=== PATIENT | male | born 1945 ===

== ENCOUNTER 2020-07-29 10:51 | Inpatient (IN) | payer MEDICARE, OTHER ==
[~2020-07-29] VITALS: Ht 165.1 cm; Wt 88.9 kg
[2020-07-29] MEDS ORDERED: IV NORMAL SALINE 1000 ML BAG IV ONE ×2 (11:15→13:15)
[2020-07-29 12:13] LABS: BASOPHILS # (AUTO) 0.1 K/uL (0.0-8.0); BASOPHILS % (AUTO) 0.3 % (0.0-2.0); HEMATOCRIT 32.9 % (36.7-47.1); HEMOGLOBIN 10.7 g/dL (12.5-16.3); LYMPHOCYTES % (AUTO) 5.1 % (20.5-51.5); MEAN CORPUSCULAR HEMOGLOBIN 26.5 uug (23.8-33.4); MEAN CORPUSCULAR HGB CONC 33 g/dL (32.5-36.3); MEAN CORPUSCULAR VOLUME 81.2 fL (73.0-96.2); MONOCYTES # (AUTO) 0.7 K/uL (2.0-10.0); MONOCYTES % (AUTO) 3.5 % (0.0-11.0); NEUTROPHILS % (AUTO) 91.1 % (38.5-71.5); PLATELET COUNT (AUTO) 390 K/uL (152-348); RED BLOOD CELL COUNT(AUTO) 4.05 MIL/uL (4.06-5.63); WHITE BLOOD COUNT (AUTO) 19.8 K/uL (3.6-10.2)
[2020-07-29] MEDS ORDERED: METOCLOPRAMIDE HCL 10 MG/2 ML VIAL IV ONE (12:15)
[2020-07-29] MEDS ORDERED: diphenhydrAMINE 50 MG/1 ML VIAL IV ONE (12:15)
[2020-07-29] MEDS ORDERED: LINA5TAB PO (12:18)
[2020-07-29] MEDS ORDERED: DORZ10DR11 EACHEYE (12:18)
[2020-07-29] MEDS ORDERED: BRIM5DRO3 EACHEYE (12:18)
[2020-07-29] MEDS ORDERED: AMLO5TAB4 PO (12:18)
[2020-07-29] MEDS ORDERED: LATA2.5D15 EACHEYE (12:18)
[2020-07-29] MEDS ORDERED: METO50TA16 PO (12:18)
[2020-07-29] MEDS ORDERED: MULT-594 PO (12:18)
[2020-07-29] MEDS ORDERED: LOPE-195 PO (12:18)
[2020-07-29] MEDS ORDERED: INSU100V39 SQ (12:18)
[2020-07-29] MEDS ORDERED: ACID1TAB4 PO (12:18)
[2020-07-29] MEDS ORDERED: ATROPINE SULFATE 1% EACHEYE (12:18)
[2020-07-29] MEDS ORDERED: DEXA4TAB PO (12:18)
[2020-07-29] MEDS ORDERED: AZIT1PAC IV (12:18)
[2020-07-29] MEDS ORDERED: PANT40TA2 PO (12:18)
[2020-07-29] MEDS ORDERED: ATOR40TA PO (12:18)
[2020-07-29] MEDS ORDERED: CEFT1FRO2 IV (12:18)
[2020-07-29] MEDS ORDERED: LACT1CAP69 PO (12:18)
[2020-07-29] MEDS ORDERED: ACET250T9 PO (12:18)
[2020-07-29] MEDS ORDERED: ASCO500C18 PO (12:18)
[2020-07-29] MEDS ORDERED: ACET-2154 PO (12:18)
[2020-07-29] MEDS ORDERED: PIPERACILLIN SODIUM/TAZOBACTAM 3.375 G in IV DEXTROSE 5% 50 ML IV ONE (13:00)
[2020-07-29 13:05] LABS: CREATINE KINASE, TOTAL 126 U/L (39-308)
[2020-07-29] MEDS ORDERED: PIPERACILLIN/TAZOBACTAM/D5W 50 ML IV ONE (13:07)
[2020-07-29 13:08] LABS: ALANINE AMINOTRANSFERASE 32 U/L (16-63); ALKALINE PHOSPHATASE 100 U/L (50-136); ASPARTATE AMINOTRANSFERASE 25 U/L (15-37); BILIRUBIN,TOTAL 0.3 mg/dL (0.2-1.0); CARBON DIOXIDE 14 mmol/L (21-32); CHLORIDE 111 mmol/L (98-107); CREATININE 5.5 mg/dL (0.6-1.3); FERRITIN 1297 ng/mL (26-388); GLUCOSE 281 mg/dL (74-106); LACTATE DEHYDROGENASE 365 U/L (85-227); TOTAL PROTEIN, SERUM 6.1 g/dL (6.4-8.2); UREA NITROGEN, BLOOD 71 mg/dL (7-18)
[2020-07-29 13:17] LABS: ABG HCO3 9.4 mmol/L; ABG PH 7.249 (7.350-7.450); ABG PO2 189.2 mmHg (75.0-100.0); ABG SITE LEFT RADIAL; ABG TOTAL HEMOGLOBIN 11.3 G/dL (13.5-18.0); COHb 0.5 % (0.5-1.5); MetHb 0.1 % (0.0-1.5); O2Hb 98.6 % (94.0-97.0)
[2020-07-29 13:29] LABS: POTASSIUM 2.3 mmol/L (3.5-5.1)
[2020-07-29] MEDS ORDERED: VANCOMYCIN IV 1,000 MG in IV DEXTROSE 5% 250 ML IV ONE (13:45)
[2020-07-29] MEDS ORDERED: POTASSIUM CHLORIDE 100 ML ONE (13:50)
[2020-07-29] MEDS: POTASSIUM CHLORIDE 50 ML IV SCH ×2 (13:56→14:44)
[2020-07-29] MEDS ORDERED: ATROPINE SULFATE 1 MG/10 ML DISP.SYRIN ONE (13:59)
[2020-07-29] MEDS ORDERED: ATROPINE SULFATE 1 MG/10 ML DISP.SYRIN IV ONE (14:00)
--- NOTE | 2020-07-29 14:04 | NUR ---
LEFT SECOND MESSAGE FOR BRITTANI OLIVAS COVERING FOR BRUNA
[2020-07-29] MEDS: NOREPINEPHRINE BITARTRATE 8 MG in IV NORMAL SALINE 242 ML IV PRN (14:14)
--- NOTE | 2020-07-29 14:14 | NUR ---
Levophed increased to 1 mcg/kg/min per Dr Rowe order.
--- NOTE | 2020-07-29 14:24 | NUR ---
levophed decreased to 0.3 mcg/kg/min per Dr Rowe order.
[2020-07-29] MEDS ORDERED: VANCOMYCIN IV 200 ML ONE (14:31)
--- NOTE | 2020-07-29 14:45 | NUR ---
DR Rowe made aware of Levophed decrease.
--- NOTE | 2020-07-29 14:45 | NUR ---
Levophed Decreased to 0.1 mcg/kg/min.
[2020-07-29] MEDS ORDERED: POTASSIUM CHLORIDE 50 ML IV SCH (17:15)
[2020-07-29] MEDS ORDERED: POTASSIUM CHLORIDE 50 ML ONE (17:20)
--- NOTE | 2020-07-29 18:38 | NUR ---
Pt remaines on Levophed 0.1 mcg/kg/min and blood pressure maintained so far.
--- NOTE | 2020-07-29 19:00 | NUR ---
RECEIVED REPORT FROM TREE KNOX LVN, PT POSITIONED FOR COMFORT. LEVOPHED DRIP INFUSING AT 0.1MCG/KG/MIN, VSS, PT ALSO ON 4 L OS VIA NASAL CANNULA.
--- NOTE | 2020-07-29 20:00 | NUR ---
PT RESTING, MONITOR SHOWS NSR, PO2 ON 6 L VIA NASAL CANULA AT 95%, LEVOPHED DRIP AT 0.01 MCG/KG/MIN.
--- NOTE | 2020-07-29 22:00 | NUR ---
PT SLEEPING EYES CLOSED, PO2 ON 6L O2=93%, VSS, LEVOPHED DRIP INFUSING, MONITOR SHOWS NSR.
--- NOTE | 2020-07-29 23:59 | NUR ---
PT RESING, LEVOPHED INFUSING, PO2=95% ON 6L O2 VIS NASAL CANNULA. PT AWAITING FOR CCU BED.
--- NOTE | 2020-07-30 02:00 | NUR ---
PT REPOSITIONED FOR COMFORT, GIVEN WATER PO, MONITOR SHOWS NSR,VSS, LEVOPHED DRIP INFUSING, PO2 ON 6L O2 VIA NASAL CANNULA=93%
--- NOTE | 2020-07-30 05:22 | NUR ---
pt repositioned for comfort, pt resting, no distress noted, levophed drip infusing, po2 on 6l o2 vis nasal cannula =95%.
--- NOTE | 2020-07-30 06:54 | NUR ---
PT RESTING LEVOPHED DRIP INFUSING, PT POSAITIONED FOR COMFORT, SBAR REPORT TO AM SHIFT.
--- NOTE | 2020-07-30 07:00 | NUR ---
RECIEVED PT IN BED, ON MONITOR, A-FIB, 95-104 RATE, 95% WITH NC 4 LITRE.
[2020-07-30 07:52] LABS: BASOPHILS # (AUTO) 0.1 K/uL (0.0-8.0); BASOPHILS % (AUTO) 0.2 % (0.0-2.0); HEMATOCRIT 34.5 % (36.7-47.1); HEMOGLOBIN 11.1 g/dL (12.5-16.3); LYMPHOCYTES # (AUTO) 0.6 K/uL (20.0-40.0); LYMPHOCYTES % (AUTO) 2.6 % (20.5-51.5); MEAN CORPUSCULAR HEMOGLOBIN 27.6 uug (23.8-33.4); MEAN CORPUSCULAR HGB CONC 32 g/dL (32.5-36.3); MEAN CORPUSCULAR VOLUME 86.2 fL (73.0-96.2); MONOCYTES # (AUTO) 0.7 K/uL (2.0-10.0); MONOCYTES % (AUTO) 3.2 % (0.0-11.0); NEUTROPHILS # (AUTO) 21.1 K/uL (1.8-8.9); PLATELET COUNT (AUTO) 450 K/uL (152-348); RED BLOOD CELL COUNT(AUTO) 4.01 MIL/uL (4.06-5.63); WHITE BLOOD COUNT (AUTO) 22.4 K/uL (3.6-10.2)
--- NOTE | 2020-07-30 08:21 | NUR ---
DORIS PLACED MIDLINE, SINGLE LUMEN ON THE ISA.
[2020-07-30 08:23] LABS: MAGNESIUM 2.2 mg/dL (1.8-2.4)
--- NOTE | 2020-07-30 09:00 | NUR ---
LANA CHAKRABORTY, PT SISTER CALLED AND GOT THE UPDATE ON THE PT. Addendum: 07/30/20 at 0906 by LAKSHMI LANA SAID THAT THE PT IS FULL CODE AT THIS POINT.
--- NOTE | 2020-07-30 09:10 | NUR ---
DR. FERREIRA IN ED TO visit the pt.
[2020-07-30] MEDS ORDERED: ACETAMINOPHEN 325 MG TABLET PO PRN (09:15)
--- NOTE | 2020-07-30 09:15 | NUR ---
PERINEAL CARE/HYGIENE PROVIDED.
[2020-07-30] MEDS: HEPARIN SODIUM,PORCINE 5,000 UNITS/ML VIAL SQ SCH ×2 (09:30→21:29)
[2020-07-30] MEDS ORDERED: ONDANSETRON 4 MG/2 ML VIAL IV STA (09:57)
[2020-07-30] MEDS ORDERED: MORPHINE SULFATE 2 MG/1 ML DISP.SYRIN IV ONE (10:00)
[2020-07-30] MEDS ORDERED: ONDANSETRON 4 MG/2 ML VIAL ONE (10:06)
[2020-07-30] MEDS ORDERED: MORPHINE SULFATE 2 MG/1 ML DISP.SYRIN ONE (10:06)
--- NOTE | 2020-07-30 10:30 | NUR ---
Spoke with pt's sister Shea Turner ([phone]) and updated her on pt's condition.
[2020-07-30] MEDS: MEROPENEM 500 MG in IV NORMAL SALINE 50 ML IV SCH (10:33)
[2020-07-30] MEDS ORDERED: HEPARIN SODIUM,PORCINE 5,000 UNITS/ML VIAL ONE ×2 (10:35→21:32)
--- NOTE | 2020-07-30 11:18 | NUR ---
BP 78/46, INCREASED THE LEVOPHED DRIP FROM 0.1MCG TO 0.2 MCG/KG/MIN.
[2020-07-30] MEDS ORDERED: EPINEPHRINE 1:10,000 1 MG/10 ML DISP.SYRIN IV ONE (16:28)
[2020-07-30] MEDS ORDERED: CALCIUM CHLORIDE 1 GM/10 ML DISP.SYRIN IV ONE (16:28)
[2020-07-30] MEDS ORDERED: SODIUM BICARBONATE 8.4% 50 MEQ/50 ML DISP.SYRIN IV ONE ×3 (16:28→23:50)
[2020-07-30] MEDS ORDERED: BRIMONIDINE-P 0.1% OPHTH DROP 5 ML DROPS EACHEYE SCH (17:00)
[2020-07-30] MEDS: ACETAzolamide 250 MG TABLET PO SCH (17:00)
[2020-07-30] MEDS: DORZOLAMIDE/TIMOLOL OPHT DROP 10 ML BOTTLE EACHEYE SCH (20:25)
[2020-07-30] MEDS: BRIMONIDINE 0.2% OPHT DROP 10 ML BOTTLE EACHEYE SCH (20:27)
[2020-07-30] MEDS: LATANOPROST OPHT DROP 2.5 ML BOTTLE EACHEYE SCH (20:28)
[2020-07-30] MEDS ORDERED: ATORVASTATIN 40 MG TABLET PO SCH (21:00)
[2020-07-30] MEDS: PANTOPRAZOLE SODIUM 40 MG TABLET.DR PO SCH (21:00)
[2020-07-30 22:56] LABS: ALANINE AMINOTRANSFERASE 32 U/L (16-63); ALKALINE PHOSPHATASE 110 U/L (50-136); ASPARTATE AMINOTRANSFERASE 41 U/L (15-37); BILIRUBIN,TOTAL 0.5 mg/dL (0.2-1.0); CHLORIDE 110 mmol/L (98-107); CREATININE 6.6 mg/dL (0.6-1.3); MAGNESIUM 2.3 mg/dL (1.8-2.4); POTASSIUM 2.9 mmol/L (3.5-5.1); TOTAL PROTEIN, SERUM 6.4 g/dL (6.4-8.2)
[2020-07-30 22:59] LABS: CARBON DIOXIDE 9 mmol/L (21-32); GLUCOSE 533 mg/dL (74-106); PHOSPHOROUS 9.7 mg/dL (2.5-4.9); UREA NITROGEN, BLOOD 84 mg/dL (7-18)
--- NOTE | 2020-07-30 23:08 | NUR ---
Called [facility] to informed them of critical lab values. Waiting for Dr Moreno to call back.
--- NOTE | 2020-07-30 23:20 | NUR ---
SPOKE TO JONATHAN TELLEZ ENVIRONMENTAL SOLUTIONS ENGINEER FOR [facility] [employer] AND INFORMED HIM OF CRITICAL LABS ( CARBON DIOXIDE 9, BUN 84, CREATINE 6.6, GLUCOSE 533, AND PHOSPHORUS 9.7) ORDERS RECIEVED AND CARRIED OUT.
[2020-07-30] MEDS ORDERED: POTASSIUM CHLORIDE 200 ML ONE (23:51)
[2020-07-30] MEDS: POTASSIUM CHLORIDE 50 ML IV SCH (23:56)
[2020-07-31] VITALS (32 sets, daily range): BP systolic 81–159; BP diastolic 41–78
[2020-07-31] MEDS ORDERED: POTASSIUM CHLORIDE 50 ML IV SCH ×3 (00:15→02:15)
[2020-07-31] MEDS: POTASSIUM CHLORIDE 50 ML IV SCH ×3 (00:30→02:30)
--- NOTE | 2020-07-31 03:06 | NUR ---
Unable to get BP and pulse ox reading. No palpable pulses present. Patient SB on the monitor with HR in the 40's and 50's. Code juanjo called.
[2020-07-31] MEDS ORDERED: PROPOFOL 100 ML ONE (03:25)
[2020-07-31] MEDS ORDERED: NOREPINEPHRINE BITARTRATE 4 MG/4 ML VIAL IV ONE (03:26)
--- NOTE | 2020-07-31 03:48 | NUR ---
Paged Dr Moreno to inform him of patient condition.
--- NOTE | 2020-07-31 03:55 | NUR ---
DR Shin speaking with Dr Moreno.
[2020-07-31] MEDS: PROPOFOL 100 ML IV PRN ×2 (04:00→17:37)
--- NOTE | 2020-07-31 04:03 | NUR ---
Nadira boland in [facility] - 07/31/20 at [id number] Moreno to informed him of patient condition.
[2020-07-31 04:25] LABS: ABG BASE EXCESS -29.2 mmol/L; ABG PCO2 34.8 mmHg (35.0-45.0); ABG PH 6.771 (7.350-7.450); ABG SITE LEFT RADIAL; ABG TOTAL HEMOGLOBIN 10.9 G/dL (13.5-18.0); COHb 0.7 % (0.5-1.5); MetHb 0.2 % (0.0-1.5); O2Hb 98.8 % (94.0-97.0); VENT MODE VENT - A/C; VT, ABG 550 mL
[2020-07-31] MEDS ORDERED: SODIUM BICARBONATE 8.4% 50 MEQ/50 ML DISP.SYRIN IV ONE ×5 (04:52→16:33)
--- NOTE | 2020-07-31 05:00 | NUR ---
Informed Davy Saez client service and consulting manager for [facility] about ABG PH 6.771 and rest of ABG. Recieved orders and carried out.
--- NOTE | 2020-07-31 05:30 | NUR ---
Gave 3amp of Sodium Bicarbonate 8.4% IVP as Dr Moreno ordered.
[2020-07-31 05:36] LABS: BASOPHILS # (AUTO) 0.2 K/uL (0.0-8.0); BASOPHILS % (AUTO) 1.2 % (0.0-2.0); EOSINOPHILS # (AUTO) 0.4 K/uL (0.0-0.7); EOSINOPHILS % (AUTO) 2.1 % (0.0-7.0); HEMATOCRIT 31.1 % (36.7-47.1); HEMOGLOBIN 9.6 g/dL (12.5-16.3); LYMPHOCYTES # (AUTO) 0.4 K/uL (20.0-40.0); LYMPHOCYTES % (AUTO) 2.2 % (20.5-51.5); MEAN CORPUSCULAR HEMOGLOBIN 27.3 uug (23.8-33.4); MEAN CORPUSCULAR HGB CONC 31 g/dL (32.5-36.3); MEAN CORPUSCULAR VOLUME 88.1 fL (73.0-96.2); MONOCYTES # (AUTO) 0.7 K/uL (2.0-10.0); MONOCYTES % (AUTO) 4.1 % (0.0-11.0); NEUTROPHILS # (AUTO) 15.9 K/uL (1.8-8.9); NEUTROPHILS % (AUTO) 90.4 % (38.5-71.5); PLATELET COUNT (AUTO) 414 K/uL (152-348); RED BLOOD CELL COUNT(AUTO) 3.54 MIL/uL (4.06-5.63); WHITE BLOOD COUNT (AUTO) 17.6 K/uL (3.6-10.2)
--- NOTE | 2020-07-31 05:40 | NUR ---
DR Shin spoke with Dr Callejas as pulmonary consult.
[2020-07-31 05:45] LABS: CARBON DIOXIDE 11 mmol/L (21-32); CHLORIDE 112 mmol/L (98-107); CREATININE 6.7 mg/dL (0.6-1.3); POTASSIUM 3.1 mmol/L (3.5-5.1); VANCOMYCIN,RANDOM 4.6 ug/mL (18.0-26.0)
[2020-07-31 05:50] LABS: GLUCOSE 544 mg/dL (74-106); UREA NITROGEN, BLOOD 80 mg/dL (7-18)
--- NOTE | 2020-07-31 06:14 | NUR ---
Started Sodium Bicarbonate drip ( Placed 3 amp of Sodium Bicarbonate in D5W 1liter at 150ml/hr.)
--- NOTE | 2020-07-31 06:38 | NUR ---
Informed DR Moreno that blood glucose is 544. Order to placed patient on insulin drip.
[2020-07-31 06:44] LABS: ABG BASE EXCESS -22.5 mmol/L; ABG HCO3 8.6 mmol/L; ABG PCO2 39.8 mmHg (35.0-45.0); ABG PH 6.951 (7.350-7.450); ABG PO2 582.7 mmHg (75.0-100.0); ABG SITE LEFT RADIAL; ABG TOTAL HEMOGLOBIN 10.5 G/dL (13.5-18.0); COHb 0.4 % (0.5-1.5); MetHb 0.4 % (0.0-1.5); O2Hb 99.1 % (94.0-97.0); VENT MODE VENT - A/C; VT, ABG 550 mL
[2020-07-31] MEDS ORDERED: INSULIN REGULAR, HUMAN 100 UNIT in IV NORMAL SALINE 99 ML IV PRN ×2 (07:15)
[2020-07-31] MEDS ORDERED: SODIUM BICARBONATE 8.4% 150 MEQ in IV D5W 1000ML 1,000 ML IV PRN (08:00)
[2020-07-31] MEDS: BLOOD SUGAR DIAGNOSTIC 1 EACH STRIP VI SCH ×16 (08:00→23:40)
--- NOTE | 2020-07-31 08:00 | NUR ---
Levophed drip increased to 0.5 mcg/kg/min.
--- NOTE | 2020-07-31 08:40 | NUR ---
Pt became pulseless, code juanjo called, cpr started. Please see code blue sheet.
--- NOTE | 2020-07-31 08:45 | NUR ---
Increased Levophed drip to max dose of 1mcg/kg/min, pharmacy aware.
--- NOTE | 2020-07-31 08:45 | NUR ---
Pt had ROSC. Code blue team at bedside, including . BP 48/25, HR 36, RR 20, O2 98 ON ETT.
--- NOTE | 2020-07-31 08:46 | NUR ---
Per hold insulin drip due to low K= (3.1), will page for further orders.
[2020-07-31] MEDS: ACETAzolamide 250 MG TABLET PO SCH (08:58)
[2020-07-31] MEDS: PANTOPRAZOLE SODIUM 40 MG TABLET.DR PO SCH (08:58)
[2020-07-31] MEDS: BRIMONIDINE 0.2% OPHT DROP 10 ML BOTTLE EACHEYE SCH ×2 (08:58→17:00)
[2020-07-31] MEDS: DORZOLAMIDE/TIMOLOL OPHT DROP 10 ML BOTTLE EACHEYE SCH ×2 (08:58→17:00)
[2020-07-31] MEDS ORDERED: LINAGLIPTIN 5 MG TABLET PO SCH (09:00)
[2020-07-31] MEDS ORDERED: VANCOMYCIN IV 1,000 MG in IV DEXTROSE 5% 250 ML IV ONE (09:00)
[2020-07-31] MEDS ORDERED: DEXAMETHASONE 4 MG TABLET PO SCH (09:00)
--- NOTE | 2020-07-31 09:00 | NUR ---
Called ([phone]), office staff stated to call back.
[2020-07-31] MEDS: NOREPINEPHRINE BITARTRATE 8 MG in IV NORMAL SALINE 242 ML IV PRN ×2 (09:07→09:24)
[2020-07-31] MEDS ORDERED: HEPARIN SODIUM,PORCINE 5,000 UNITS/ML VIAL ONE (09:44)
[2020-07-31] MEDS ORDERED: VANCOMYCIN IV 200 ML ONE (09:44)
[2020-07-31] MEDS: HEPARIN SODIUM,PORCINE 5,000 UNITS/ML VIAL SQ SCH ×2 (09:53→20:55)
--- NOTE | 2020-07-31 10:00 | NUR ---
Attempted to call office [phone], no answer, msg stated the line is in use at this time. Will try again later.
[2020-07-31] MEDS: MEROPENEM 500 MG in IV NORMAL SALINE 50 ML IV SCH (10:11)
--- NOTE | 2020-07-31 13:00 | NUR ---
Telephone consent for short-term dialysis catheter received from sister Latisha Cardoso via telephone. Witnessed by ARY Darby.
--- NOTE | 2020-07-31 13:10 | NUR ---
in to see pt.
--- NOTE | 2020-07-31 13:30 | NUR ---
Dialysis catheter placed to rt femoral by .
[2020-07-31 13:41] LABS: A/G RATIO 0.7 (0.7-1.7); ALBUMIN 2.3 g/dL (2.9-4.4); ALPHA-1-GLOBULIN 0.4 g/dL (0.0-0.4); ALPHA-2-GLOBULIN 0.9 g/dL (0.4-1.0); BETA GLOBULIN 0.7 g/dL (0.7-1.3); GAMMA GLOBULIN 1.1 g/dL (0.4-1.8); GLOBULIN, TOTAL 3.2 g/dL (2.2-3.9); M-SPIKE Not Observed g/dL (Not Observed)
--- NOTE | 2020-07-31 14:30 | NUR ---
Levophed drip decreased to 2mcg/kg/min, per pharmacy the new bag is quadruple strength.
[2020-07-31] MEDS ORDERED: VANCOMYCIN IV 750 MG in IV DEXTROSE 5% 250 ML IV SCH (15:00)
--- NOTE | 2020-07-31 15:10 | NUR ---
SBAR report given to ARY Haynes on CCU floor.
--- NOTE | 2020-07-31 15:35 | NUR ---
Pt trans to CCU with ACLS guidelines in place with RT.
--- NOTE | 2020-07-31 15:45 | NUR ---
Patient in from ER. via gurney transfer by Kaelyn and RT. On ventilator with setting A/C 18,100% FIO2, 550 tv, Peep +5. ML to FRANCA infusing with levophed running at 2mcg.kg.min. propofol at 5mcg/kg/min. bicarb drip running at 100cc/hr Insulin drip at 6units/hr Blood sugar check at this time 418 reading obtained adjusted PP. Patient opening eyes and attempting purposeful movement at this time will sedate accordingly. Sacral area with dti and skin tear noted, pictures taken. 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 Attending in the unit while report received. Addendum: 07/31/20 at 1811 by GUS TOBIAS RN Vent setting of A/C 20, VT 550, Peep +5, and FIO2 50%. THE above vent setting were received from telephone report. correct setting are amended.
[2020-07-31] MEDS ORDERED: ATROPINE SULFATE 1 MG/10 ML DISP.SYRIN IV ONE (16:33)
[2020-07-31] MEDS ORDERED: EPINEPHRINE 1:10,000 1 MG/10 ML DISP.SYRIN IV ONE (16:33)
[2020-07-31] MEDS: NOREPINEPHRINE BITARTRATE 32 MG in IV NORMAL SALINE 218 ML IV PRN ×2 (17:35→22:38)
[2020-07-31] MEDS: LATANOPROST OPHT DROP 2.5 ML BOTTLE EACHEYE SCH (17:38)
--- NOTE | 2020-07-31 19:00 | NUR ---
received patient on vent settings of ac 20 tv 550 p5 fio2 of 50 % , arousable to deep pain with temp of 95 . 8 with no spontaneous eye opening , . on bear hugger sset at 38. c , levophed at 0.14 mcg , propofol at 10 mcg , iv at 150 with na bicarb , insulin drip at 6 unit , ekg done , , harish cath intact on femoral
[2020-07-31] MEDS ORDERED: ACETAMINOPHEN 650 MG SUPP.RECT RC PRN (20:00)
[2020-07-31] MEDS ORDERED: MORPHINE SULFATE 2 MG/1 ML DISP.SYRIN IV PRN (20:00)
[2020-07-31] MEDS: POTASSIUM CHLORIDE 20 MEQ in IV 1/2NS 1000 ML 1,000 ML IV PRN (20:45)
[2020-07-31] MEDS: AZITHROMYCIN IV 500 MG in IV DEXTROSE 5% 250 ML IV SCH (20:45)
[2020-07-31] MEDS ORDERED: FAMOTIDINE. 20 MG/2 ML VIAL IV SCH (21:00)
[2020-07-31] MEDS: INSULIN GLARGINE,HUM 300 UNITS/3 ML CARTRIDGE SQ SCH (21:01)
[2020-08-01] VITALS (90 sets, daily range): BP systolic 64–215; BP diastolic 23–144
[2020-08-01] MEDS ORDERED: Z GUARD REMEDY PASTE 57 GM TUBE TOP PRN (00:15)
[2020-08-01] MEDS: BLOOD SUGAR DIAGNOSTIC 1 EACH STRIP VI SCH ×23 (00:37→22:00)
[2020-08-01] MEDS: PROPOFOL 100 ML IV PRN ×2 (00:58→12:16)
[2020-08-01 05:23] LABS: BASOPHILS % (AUTO) 0.3 % (0.0-2.0); HEMATOCRIT 29.5 % (36.7-47.1); HEMOGLOBIN 10.1 g/dL (12.5-16.3); LYMPHOCYTES # (AUTO) 0.2 K/uL (20.0-40.0); LYMPHOCYTES % (AUTO) 1.4 % (20.5-51.5); MEAN CORPUSCULAR HEMOGLOBIN 27.2 uug (23.8-33.4); MEAN CORPUSCULAR HGB CONC 34 g/dL (32.5-36.3); MEAN CORPUSCULAR VOLUME 79.6 fL (73.0-96.2); MONOCYTES # (AUTO) 0.2 K/uL (2.0-10.0); MONOCYTES % (AUTO) 1.7 % (0.0-11.0); NEUTROPHILS # (AUTO) 10.9 K/uL (1.8-8.9); NEUTROPHILS % (AUTO) 96.6 % (38.5-71.5); PLATELET COUNT (AUTO) 312 K/uL (152-348); RED BLOOD CELL COUNT(AUTO) 3.71 MIL/uL (4.06-5.63); WHITE BLOOD COUNT (AUTO) 11.3 K/uL (3.6-10.2)
[2020-08-01 05:49] LABS: THYROID STIMULATING HORMONE 0.998 mIU/mL (0.358-3.740)
--- NOTE | 2020-08-01 05:58 | NUR ---
lactic acid reported to md , waiting for call back
[2020-08-01 05:59] LABS: IRON, SERUM 11 ug/dL (50-175)
[2020-08-01 06:26] LABS: ALANINE AMINOTRANSFERASE 35 U/L (16-63); ALKALINE PHOSPHATASE 121 U/L (50-136); ASPARTATE AMINOTRANSFERASE 61 U/L (15-37); BILIRUBIN,TOTAL 0.4 mg/dL (0.2-1.0); CARBON DIOXIDE 22 mmol/L (21-32); CHLORIDE 112 mmol/L (98-107); CHOLESTEROL 96 mg/dL (<200); CREATININE 5.9 mg/dL (0.6-1.3); FERRITIN 3045 ng/mL (26-388); HDL CHOLESTEROL 45 mg/dL (40-60); MAGNESIUM 1.7 mg/dL (1.8-2.4); PHOSPHOROUS 4.9 mg/dL (2.5-4.9); TOTAL PROTEIN, SERUM 5.8 g/dL (6.4-8.2); TRIGLYCERIDES 98 MG/DL (30-150); UREA NITROGEN, BLOOD 68 mg/dL (7-18)
--- NOTE | 2020-08-01 06:30 | NUR ---
ngt inserted , cxr done to verify placement current saturation 100 % , rr 27 bp 130/ 69 hr 110 , temp of 100 ,2 axillary , post ngt insertion
[2020-08-01 06:31] LABS: GLUCOSE 334 mg/dL (74-106); POTASSIUM 2.6 mmol/L (3.5-5.1)
--- NOTE | 2020-08-01 06:46 | NUR ---
wilman , called back , notified of all critical lab values this morning , diagnosis and history of the patient given and current medications receiiving , received orders of kcl iv
[2020-08-01] MEDS: POTASSIUM CHLORIDE 50 ML IV SCH ×2 (07:42→08:30)
[2020-08-01] MEDS ORDERED: POTASSIUM CHLORIDE 20 MEQ POWDER PACKET NG ONE (07:45)
[2020-08-01 08:11] LABS: ABG BASE EXCESS -7.6 mmol/L; ABG PCO2 36.7 mmHg (35.0-45.0); ABG PH 7.308 (7.350-7.450); ABG PO2 67.2 mmHg (75.0-100.0); ABG SITE RIGHT RADIAL; ABG TOTAL HEMOGLOBIN 10.2 G/dL (13.5-18.0); COHb 0.9 % (0.5-1.5); MetHb 0.5 % (0.0-1.5); VT, ABG 550 mL
[2020-08-01] MEDS: NOREPINEPHRINE BITARTRATE 32 MG in IV NORMAL SALINE 218 ML IV PRN ×3 (08:41→20:00)
[2020-08-01] MEDS: HEPARIN SODIUM,PORCINE 5,000 UNITS/ML VIAL SQ SCH ×2 (08:46→20:52)
[2020-08-01] MEDS: DORZOLAMIDE/TIMOLOL OPHT DROP 10 ML BOTTLE EACHEYE SCH ×2 (08:51→16:57)
[2020-08-01] MEDS: BRIMONIDINE 0.2% OPHT DROP 10 ML BOTTLE EACHEYE SCH ×2 (08:51→16:56)
[2020-08-01] MEDS ORDERED: ASPIRIN 81 MG TAB.CHEW PO SCH (09:00)
[2020-08-01] MEDS ORDERED: FAMOTIDINE. 20 MG/2 ML VIAL IV SCH (09:00)
[2020-08-01] MEDS ORDERED: VANCOMYCIN IV 1,250 MG in IV DEXTROSE 5% 250 ML IV ONE (09:00)
--- NOTE | 2020-08-01 09:01 | NUR ---
PT RECEIVED TRACH TO VENT WITH SETTINGS AC20/550/50%/5 OF PEEP. TRACH SECURED AND INTACT. AIRWAY PATENT. WILL CONTINUE TO MONITOR Addendum: 08/01/20 at 0908 by EMILY HORNER RT PT RECEIVED ON VENT WITH SETTINGS AC20/550/50%/5 OF PEEP. ETT SECURED AND AIRWAY PATENT. WILL CONTINUE TO MONITOR
[2020-08-01] MEDS ORDERED: VANCOMYCIN IV 500 MG in IV DEXTROSE 5% 100 ML IV ONE (10:00)
[2020-08-01] MEDS: POTASSIUM CHLORIDE 20 MEQ in IV 1/2NS 1000 ML 1,000 ML IV PRN ×2 (10:59→21:13)
--- NOTE | 2020-08-01 11:00 | NUR ---
Attending physician, Dr. Sandoval in the unit to see and examine pt. report given and orders to continue with care plan received.
--- NOTE | 2020-08-01 11:07 | NUR ---
WOUND CARE CONSULT: REVIEWED CHART, NURSING DOCUMENTATION AND PHOTOS WHICH INDICATE LOWER EXTREMITY SCARRING, SACRAL SCARRING WITH INTACT DEEP TISSUE INJURY OVER SCARRING EXTENDING TO BUTTOCKS AND RT LOWER BUTTOCK INTACT DEEP TISSUE INJURY, ALL PRESENT ON ADMISSION. RECOMMENDATIONS MADE FOR SKIN PROTECTION. DISCUSSED WITH NURSING STAFF. FIRST STEP LOW AIRLOSS MATTRESS IS ON ORDER. MD IN AGREEMENT WITH PLAN OF CARE.
[2020-08-01] MEDS: MEROPENEM 500 MG in IV NORMAL SALINE 50 ML IV SCH (11:17)
[2020-08-01] MEDS ORDERED: MAGNESIUM SULFATE/D5W 100 ML IV SCH (11:45)
--- NOTE | 2020-08-01 12:40 | NUR ---
patient seen by Nephrology services, N.P.
--- NOTE | 2020-08-01 13:40 | NUR ---
At this time unable to obtains sbp reading and with desaturation all the way down to the 70's 100% FIO2 given. RT in the unit and assisting patient.
--- NOTE | 2020-08-01 13:44 | NUR ---
At this time pt. with desaturation and no sbp and pt. went asystole on the monitor. Code blue called and patient treated. Code run by Dr. Lazaro. During code pt. received 2 doses of epinephrine, and 500cc bolus given.code stopped at 1347 after return of spontaneous circulation. During code blood sugar of 155. obtained. Pillowcase Sewer and attending notified orders from fnps received and implemented. Addendum: 08/01/20 at 1419 by ANEESH VILLASENOR RN Spoke with Dr. Sandoval and He recommended to talk to Dr. juan and notify him to inform family.
[2020-08-01] MEDS ORDERED: PHENYLEPHRINE IV 50 MG in IV NORMAL SALINE 245 ML IV PRN (14:00)
[2020-08-01] MEDS ORDERED: VASOPRESSIN 40 UNIT in IV NORMAL SALINE 40 ML IV PRN (14:15)
--- NOTE | 2020-08-01 14:25 | NUR ---
Zee from nephrology services, in the unit and report given. At this time He was informed that pt's sister Latisha will be called and informed her of the event.
--- NOTE | 2020-08-01 14:29 | NUR ---
A call to Luis Walker Good and she was informed of events and she's on the phone with attending N.P. from nephrology services. but Ms. Good verbalized desire to let him go if pt. codes one more time.
[2020-08-01] MEDS ORDERED: PHENYLEPHRINE IV 100 MG in IV NORMAL SALINE 240 ML IV PRN (14:45)
--- NOTE | 2020-08-01 15:49 | NUR ---
A call to Attending epic group Dr. Sandoval and he was notified of sustained Blood glucose below 180's. orders to continue with insulin drip and once GAP goes to 16 insulin drip should be stopped and start patient in long acting insulin with no dosage received and to be follow up by staff assigned to pt.
[2020-08-01] MEDS: LATANOPROST OPHT DROP 2.5 ML BOTTLE EACHEYE SCH (17:09)
[2020-08-01 18:10] LABS: CARBON DIOXIDE 21 mmol/L (21-32); CHLORIDE 114 mmol/L (98-107); CREATININE 6.2 mg/dL (0.6-1.3); GLUCOSE 97 mg/dL (74-106); POTASSIUM 3.5 mmol/L (3.5-5.1); UREA NITROGEN, BLOOD 66 mg/dL (7-18)
--- NOTE | 2020-08-01 19:00 | NUR ---
received patient with no response , no gag reflex,, vent settings of ac 20 tv 55 p5 100 % fio2 , levophed at 0.098 , neosynephrine at 2. 9 mcg , 1/2 ns = 20 meq kcl at 90 ml , insulin drip at 1 u nit . harish cath right femoral intact , mid line and picc line intact
[2020-08-01] MEDS ORDERED: DEXTROSE 50% 50 ML DISP.SYRIN IV PRN ×3 (20:30→22:30)
[2020-08-01] MEDS: AZITHROMYCIN IV 500 MG in IV DEXTROSE 5% 250 ML IV SCH (20:41)
[2020-08-01] MEDS: INSULIN GLARGINE,HUM 300 UNITS/3 ML CARTRIDGE SQ SCH (21:00)
--- NOTE | 2020-08-01 21:30 | NUR ---
talked to misty cole , regarding trend of bs of patient , currently on insulin drip fs every 1 hour , received orders of fs 4 hours with agrresive sliding scale
[2020-08-01] MEDS ORDERED: IV D5W-0.45% NS +20 KCL 1,000 ML IV PRN (21:45)
[2020-08-01] MEDS ORDERED: INSULIN REGULAR, HUMAN 300 UNIT/3 ML VIAL SQ PRN ×2 (21:45→22:30)
--- NOTE | 2020-08-01 22:00 | NUR ---
insulin drip was dc'd as per order of kelsey diane , neosunephrine was held because of high blood pressure , levophed is running
[2020-08-01] MEDS ORDERED: MEROPENEM 500 MG in IV NORMAL SALINE 50 ML IV SCH (23:00)
[2020-08-02] VITALS: BP 142/75
[2020-08-02] MEDS ORDERED: BLOOD SUGAR DIAGNOSTIC 1 EACH STRIP VI SCH
[2020-08-02] MEDS: BLOOD SUGAR DIAGNOSTIC 1 EACH STRIP VI SCH
[2020-08-02 00:15] VITALS: BP 152/92
[2020-08-02 00:30] VITALS: BP 174/97
[2020-08-02 00:45] VITALS: BP 159/103
[2020-08-02 01:00] VITALS: BP 166/100
--- NOTE | 2020-08-02 01:40 | NUR ---
PATIENT IS ON LEVOPHED AT . 0.98 MCG M D5 1/2 NS AT 100 ML , INSULIN DRIP WAS CHANGED TO AGGRESIVE SCALE , LAST BS 113 AT 00:00. VENT SETTINGS OF AC 20 TV 550 P5 , 100% FIO2
--- NOTE | 2020-08-02 02:00 | NUR ---
KRYSTIAN UI ARCHITECT AWARE OF EXPIRATION OF THE PATIENT
--- NOTE | 2020-08-02 02:15 | NUR ---
SISTER LANA RIDDLE ([phone]) WAS LEFT A MESSAGE TO CALL BACK CCU UNIT , WAITING FOR CALL BACK
--- NOTE | 2020-08-02 02:15 | NUR ---
Patient apneic for 5 minutes Pupils fixed and dilated No audible heart tones and breath sounds No palpable pulses and corneal reflexes Pronounced at 0140
--- NOTE | 2020-08-02 02:20 | NUR ---
DR THAKUR IS CALLED TO INFORM OF OF THE PATIENT
--- NOTE | 2020-08-02 02:51 | NUR ---
PATIENT HAS NO BELONGINGS
--- NOTE | 2020-08-02 02:52 | NUR ---
IV'S , NGT ETT PULLED OUT BY HELPED OF RT
--- NOTE | 2020-08-02 03:00 | NUR ---
sister kota called back and informed of expiration , and patient's body will be in [facility] , verbalizes understanding , and gave consent for release of body
== END 2020-08-02 01:40 | disposition expired | DRG 871 ==
LOC: ER 10:51 → TRANSITION 18:02 → CCU 07-31 15:17
PROVIDERS: ADMIT Internal Medicine; ATTEND Internal Medicine
PROC: 05H533Z Insertion of Infusion Device into Right Subclavian Vein, Percutaneous Approach (ICD-10-PCS; 2020-07-30)
PROC: B546ZZA Ultrasonography of Right Subclavian Vein, Guidance (ICD-10-PCS; 2020-07-30)
PROC: 5A1945Z Respiratory Ventilation, 24-96 Consecutive Hours (ICD-10-PCS; principal; 2020-07-31)
PROC: 0BH17EZ Insertion of Endotracheal Airway into Trachea, Via Natural or Artificial Opening (ICD-10-PCS; 2020-07-31)
PROC: 5A12012 Performance of Cardiac Output, Single, Manual (ICD-10-PCS; 2020-07-31)
PROC: 06HY33Z Insertion of Infusion Device into Lower Vein, Percutaneous Approach (ICD-10-PCS; 2020-07-31)
PROC: 5A12012 Performance of Cardiac Output, Single, Manual (ICD-10-PCS; 2020-08-01)
DX: A41.89 Other specified sepsis (principal); U07.1 COVID-19; E11.10 Type 2 diabetes mellitus with ketoacidosis without coma; N17.0 Acute kidney failure with tubular necrosis; E43 Unspecified severe protein-calorie malnutrition; G92 Toxic encephalopathy; J96.01 Acute respiratory failure with hypoxia; R65.21 Severe sepsis with septic shock; J12.82 Pneumonia due to coronavirus disease 2019; I21.4 Non-ST elevation (NSTEMI) myocardial infarction; D68.69 Other thrombophilia; E87.2 Acidosis; M86.9 Osteomyelitis, unspecified; R65.20 Severe sepsis without septic shock; E11.22 Type 2 diabetes mellitus with diabetic chronic kidney disease; D50.9 Iron deficiency anemia, unspecified; E86.0 Dehydration; E78.5 Hyperlipidemia, unspecified; E86.1 Hypovolemia; N18.9 Chronic kidney disease, unspecified; Z79.4 Long term (current) use of insulin; Z66 Do not resuscitate; Z89.511 Acquired absence of right leg below knee; E87.6 Hypokalemia; I49.5 Sick sinus syndrome; E11.51 Type 2 diabetes mellitus with diabetic peripheral angiopathy without gangrene; I12.9 Hypertensive chronic kidney disease with stage 1 through stage 4 chronic kidney disease, or unspecified chronic kidney disease; I48.0 Paroxysmal atrial fibrillation; E11.69 Type 2 diabetes mellitus with other specified complication; H54.8 Legal blindness, as defined in USA
CPT/HCPCS: 36415; 36600; 70030-TC; 71045; 76770; 83550; 83605; 83615; 83735; 83970; 84100; 84155; 84165; 84443; 85025; 85730; 86140; 87040; 87070; 87077; 90937; 93005; 94002; 94003; A4663; G0378; J0171; J0456; J0461; J1644; J1815; J2185; J2270; J2370; J2405; J2543; J3370; J3475; J3480; J3490; J7030; J7050; J7060; J7070; J8540